=== PATIENT | female | born 1940 | race Caucasian/White ===

== ENCOUNTER 2016-03-22 11:59 | Outpatient (CLI) | payer MEDICARE ==
[2016-03-22 12:57] LABS: Bilirubin Negative (Negative); Blood, Urine Small (Negative); Glucose, Urine (Dipstick) Negative (Negative); Leukocyte Large (Negative); Nitrite Negative (Negative); Protein, Urine (Dipstick) Negative (Neg-Trace); Specific Gravity, Urine 1.015 (1.005-1.030); Urobilinogen 0.2 mg/dL (0.2-1.0); pH, Urine 5.5 (5.0-9.0)
[2016-03-22 12:58] LABS: Clarity Cloudy (Clear)
[2016-03-22 12:59] LABS: Bacteria/HPF 3+ HPF (None Seen); Other Microscopic Description C&S SET UP; Squamous Epithelial 0-3 HPF (0-3)
== END 2016-03-22 12:00 | disposition home or self-care (01) ==
LOC: MADLABBHPM 11:59
PROVIDERS: ATTEND Family Medicine
DX: R30.0 Dysuria (principal)
CPT/HCPCS: 36415; 81001; 87077; 87086; 87186

== ENCOUNTER 2016-05-05 13:57 | Outpatient (CLI) | payer MEDICARE ==
[2016-05-05 14:47] LABS: Bilirubin Negative (Negative); Blood, Urine Negative (Negative); Clarity Clear (Clear); Glucose, Urine (Dipstick) Negative (Negative); Leukocyte Negative (Negative); Nitrite Negative (Negative); Protein, Urine (Dipstick) Negative (Neg-Trace); Specific Gravity, Urine 1.015 (1.005-1.030); Urobilinogen 0.2 mg/dL (0.2-1.0); pH, Urine 6.5 (5.0-9.0)
[2016-05-05 15:10] LABS: Bacteria/HPF Rare-Few HPF (None Seen); RBC/HPF None Seen HPF (0-3); WBC/HPF None Seen HPF (0-3)
== END 2016-05-05 13:58 | disposition home or self-care (01) ==
LOC: MADLABBHPM 13:57
PROVIDERS: ATTEND Family Medicine
DX: R30.0 Dysuria (principal)
CPT/HCPCS: 36415; 81001; 87077; 87086; 87186

== ENCOUNTER 2016-06-01 09:43 | Outpatient (CLI) | payer MEDICARE ==
[2016-06-01 10:13] LABS: Bilirubin Negative (Negative); Blood, Urine Trace (Negative); Clarity Clear (Clear); Glucose, Urine (Dipstick) Negative (Negative); Leukocyte Negative (Negative); Nitrite Negative (Negative); Protein, Urine (Dipstick) Negative (Neg-Trace); Urobilinogen 0.2 mg/dL (0.2-1.0)
[2016-06-01 10:59] LABS: Bacteria/HPF Rare-Few HPF (None Seen); RBC/HPF 0-3 HPF (0-3); WBC/HPF None Seen HPF (0-3)
== END 2016-06-01 09:44 | disposition home or self-care (01) ==
LOC: MADLABBHPM 09:43
PROVIDERS: ATTEND Family Medicine
DX: R30.0 Dysuria (principal)
CPT/HCPCS: 36415; 81001; 87086

== ENCOUNTER 2016-07-27 09:34 | Outpatient (CLI) | payer MEDICARE ==
[2016-07-27 10:05] LABS: Clarity Cloudy (Clear); Leukocyte Large (Negative); Nitrite Negative (Negative); Protein, Urine (Dipstick) 30 mg/dL (Neg-Trace); pH, Urine 5.5 (5.0-9.0)
[2016-07-27 10:06] LABS: Bacteria/HPF 2+ HPF (None Seen); Bilirubin Negative (Negative); Blood, Urine Moderate (Negative); Glucose, Urine (Dipstick) Negative (Negative); Urobilinogen 0.2 mg/dL (0.2-1.0)
== END 2016-07-27 09:35 | disposition home or self-care (01) ==
LOC: MADLABBHPM 09:34
PROVIDERS: ATTEND Family Medicine
DX: R82.90 Unspecified abnormal findings in urine (principal)
CPT/HCPCS: 36415; 81001; 87077; 87086; 87186

== ENCOUNTER 2016-09-22 09:05 | Outpatient (CLI) | payer MEDICARE ==
[2016-09-22 09:53] LABS: ALT (SGPT) 19 U/L (8-55); AST (SGOT) 21 U/L (5-34); Albumin 3.8 g/dL (3.4-4.8); Alkaline Phosphatase 65 U/L (40-150); Anion Gap 15 mmol/L (10-20); BUN (Urea Nitrogen) 17 mg/dL (9.8-20.1); Bilirubin, Total 0.5 mg/dL (0.2-1.2); Calc. Creatinine Clearance 0 mL/min (70-130); Calcium 9.3 mg/dL (7.8-10.44); Carbon Dioxide 22 mmol/L (23-31); Cardiac Risk 4.9 (Less than 4.5); Chloride 106 mmol/L (98-107); Cholesterol 186 mg/dl (< 200 Desired); Estimated GFR-MDRD 72; Globulin 2.7 g/dL (2.4-3.5); Glucose 119 mg/dL (83-110); HDL Cholesterol 38 mg/dL (>60 Neg Risk); Potassium 4.1 mmol/L (3.5-5.1); Protein, Total 6.5 g/dL (6.0-8.3); Sodium 139 mmol/L (136-145); Triglycerides 428 mg/dL (Less than 150)
[2016-09-22 10:15] LABS: #Basophils 0.1 thou/uL (0.0-0.2); #Eosinphils 0.3 thou/uL (0.0-0.7); #Lymphocytes 1.6 thou/uL (1.20-3.40); #Monocytes 0.7 thou/uL (0.11-0.59); #Neutrophils 3.4 thou/uL (1.40-6.50); %Basophils 1.4 % (0.0-1.0); %Eosinophils 4.3 % (0.0-10.0); %Lymphocytes 26.8 % (21.0-51.0); %Monocytes 11.1 % (0.0-10.0); %Neutrophils 56.3 % (42.0-75.0); Hemoglobin 11.9 g/dL (12.0-16.0); Mean Corpuscular HGB CONC 32.3 g/dL (32.0-36.0); Mean Corpuscular Hemoglobin 32.3 pg (27.0-31.0); Mean Platelet Volume 8.4 fL (7.4-10.4); Platelet Count 181 thou/uL (130-400); Red Blood Cell (RBC) Count 3.66 mill/uL (4.20-5.40)
[2016-09-22 10:37] LABS: Thyroid Stimulating Hormone 3.8309 uIU/mL (0.35-4.94); Vitamin D, 25 Hydroxy 25.2 ng/ml (> 30.0)
[2016-09-22 13:55] LABS: Bacteria/HPF Rare-Few HPF (None Seen); Bilirubin Negative (Negative); Blood, Urine Negative (Negative); Clarity Clear (Clear); Glucose, Urine (Dipstick) 100 mg/dL (Negative); Leukocyte Negative (Negative); Nitrite Positive (Negative); Protein, Urine (Dipstick) Negative (Neg-Trace); RBC/HPF 0-3 HPF (0-3); Urobilinogen 0.2 mg/dL (0.2-1.0); WBC/HPF 0-3 HPF (0-3); pH, Urine 5.5 (5.0-9.0)
== END 2016-09-22 09:06 | disposition home or self-care (01) ==
LOC: MADLABBHPM 09:05
PROVIDERS: ATTEND Family Medicine
DX: E78.5 Hyperlipidemia, unspecified (principal); E55.9 Vitamin D deficiency, unspecified; D64.9 Anemia, unspecified; I10 Essential (primary) hypertension; R00.2 Palpitations
CPT/HCPCS: 36415; 80053; 80061; 81001; 82306; 84443; 85025

== ENCOUNTER 2016-11-20 10:32 | Outpatient (CLI) | payer MEDICARE ==
[2016-11-20 10:58] LABS: Hemoglobin A1c 5.2 % (4.0-6.0)
[2016-11-20 11:38] LABS: Anion Gap 12 mmol/L (10-20); BUN (Urea Nitrogen) 17 mg/dL (9.8-20.1); Calc. Creatinine Clearance 0 mL/min (70-130); Calcium 9.6 mg/dL (7.8-10.44); Carbon Dioxide 24 mmol/L (23-31); Chloride 105 mmol/L (98-107); Estimated GFR-MDRD 74; Glucose 111 mg/dL (83-110); Potassium 4.3 mmol/L (3.5-5.1); Sodium 137 mmol/L (136-145)
== END 2016-11-20 10:33 | disposition home or self-care (01) ==
LOC: MADLABBHPM 10:32
PROVIDERS: ATTEND Internal Medicine Cardiovascular Disease
DX: I48.0 Paroxysmal atrial fibrillation (principal); I10 Essential (primary) hypertension; R73.01 Impaired fasting glucose
CPT/HCPCS: 36415; 80048; 83036

== ENCOUNTER 2016-12-14 21:56 | Emergency (ER) | payer MEDICARE ==
[2016-12-14] MEDS ORDERED: Ondansetron ODT 4 MG TAB ONE (22:29)
[2016-12-14] MEDS ORDERED: Acetaminophen/Codeine 30-300mg Tablet ONE (22:29)
--- NOTE | 2016-12-14 23:08 | CT ---
CT BRAIN WITHOUT CONTRAST: 12/14/16 HISTORY: Fall onto the right side, head injury and pain. FINDINGS: The ventricular size is prominent due to cortical atrophy. No evidence of acute infarct, hemorrhage or midline shift or abnormal extra-axial fluid collections are seen. There are changes of mild chron ic small vessel ischemic disease in the periventricular white matter. The bony calvarium is intact. The visualized paranasal sinuses and mastoid air cells are well aerated. IMPRESSION: No CT evidence of acute intracranial process. POS: [facility]
--- NOTE | 2016-12-14 23:10 | CT ---
CERVICAL SPINE CT NONCONTRAST: 12/14/16 INDICATION: Pain, fall with neck injury. The craniocervical junction is intact. There is grade I spondylolisthesis of C4-5. No acute compress ion fracture. Multiple prominence of facet osteoarthritis. There is trace spondylolisthesis of C5-6 and C7-T1. IMPRESSION: 1. No acute fracture of the cervical spine. 2. Multilevel mild listhesis favoring degenerative etiology. POS: [facility]
== END 2016-12-14 23:28 | disposition home or self-care (01) ==
LOC: MADERS 21:56
DX: S01.81XA Laceration without foreign body of other part of head, initial encounter (principal); S80.212A Abrasion, left knee, initial encounter; S80.211A Abrasion, right knee, initial encounter; I10 Essential (primary) hypertension; I48.91 Unspecified atrial fibrillation; Z87.891 Personal history of nicotine dependence; W01.190A Fall on same level from slipping, tripping and stumbling with subsequent striking against furniture, initial encounter; Y92.009 Unspecified place in unspecified non-institutional (private) residence as the place of occurrence of the external cause
CPT/HCPCS: 12013; 70450; 72125; Q0162

== ENCOUNTER 2017-03-15 14:59 | Outpatient (CLI) | payer MEDICARE ==
[2017-03-15 15:44] LABS: Bilirubin Negative (Negative); Blood, Urine Small (Negative); Glucose, Urine (Dipstick) Negative (Negative); Leukocyte Large (Negative); Nitrite Negative (Negative); Protein, Urine (Dipstick) Negative (Neg-Trace); Specific Gravity, Urine 1.015 (1.005-1.030); Urobilinogen 0.2 mg/dL (0.2-1.0)
[2017-03-15 16:00] LABS: Clarity Cloudy (Clear)
[2017-03-15 16:01] LABS: Bacteria/HPF 1+ HPF (None Seen); Squamous Epithelial 0-3 HPF (0-3)
== END 2017-03-15 15:00 | disposition home or self-care (01) ==
LOC: MADLABBHPM 14:59
PROVIDERS: ATTEND Urology
DX: R30.0 Dysuria (principal)
CPT/HCPCS: 81001; 87077; 87086; 87186

== ENCOUNTER 2017-06-28 13:29 | Outpatient (CLI) | payer MEDICARE ==
--- NOTE | 2017-06-28 14:12 | RAD ---
RIGHT HAND 2 VIEWS: HISTORY: A 7-year-old female with a history of arthritis. FINDINGS: Arthrosis and degenerative changes are noted involving the hand and wrist including the trapezium 1st metacarpal joint. No acute fracture or dislocation. No evidence for significant acute inflammatory arthritis. IMPRESSION: Degenerative and osteoarthrosis changes right hand. POS: [facility]
--- NOTE | 2017-06-28 14:13 | RAD ---
LEFT HAND 2 VIEWS: HISTORY: Hand pain. Joint pain. FINDINGS: Osteophytosis, joint space narrowing, and subchondral sclerosis are most pronounced at the 1st carpom etacarpal joint and, to a lesser extent, at the distal interphalangeal joint. No acute fracture, dis location, or aggressive osseous erosions. IMPRESSION: Mild osteoarthritis left hand. POS: [facility]
--- NOTE | 2017-06-28 14:14 | RAD ---
RIGHT WRIST 2 VIEWS: HISTORY: A 77-year-old female with a history of arthritis. FINDINGS/IMPRESSION: Arthrosis and degenerative changes of the wrist including the triscaphe region as well as the trapezi us 1st metacarpal joint without acute fracture or dislocation. POS: [facility]
--- NOTE | 2017-06-28 14:15 | RAD ---
LEFT WRIST 2 VIEWS: HISTORY: A 77-year-old female with a history of arthritis. FINDINGS/IMPRESSION: Arthrosis and degenerative changes including the triscaphe region and trapezium 1st metacarpal joints without fracture or dislocation or other acute process. POS: [facility]
== END 2017-06-28 13:30 | disposition home or self-care (01) ==
LOC: MADRAD 13:29
PROVIDERS: ATTEND Internal Medicine Rheumatology
DX: M79.641 Pain in right hand (principal); M79.642 Pain in left hand; M19.032 Primary osteoarthritis, left wrist; M19.031 Primary osteoarthritis, right wrist; M19.041 Primary osteoarthritis, right hand; M19.042 Primary osteoarthritis, left hand

== ENCOUNTER 2018-05-01 15:12 | Emergency (ER) | payer MEDICARE ==
[~2018-05-01 15:12] MED LIST: Sodium Chloride 0.9% 500 ML BAG ONE
[2018-05-01 16:19] LABS: #Basophils 0.1 thou/uL (0.0-0.2); #Eosinphils 0.3 thou/uL (0.0-0.7); #Lymphocytes 1.3 thou/uL (1.20-3.40); #Monocytes 0.5 thou/uL (0.11-0.59); %Basophils 1.4 % (0.0-1.0); %Eosinophils 4.7 % (0.0-10.0); %Lymphocytes 21.1 % (21.0-51.0); %Monocytes 7.7 % (0.0-10.0); %Neutrophils 65.1 % (42.0-75.0); Mean Corpuscular HGB CONC 33.6 g/dL (32.0-36.0); Mean Corpuscular Hemoglobin 31.6 pg (27.0-31.0); Mean Corpuscular Volume 94.1 fL (78.0-98.0); Mean Platelet Volume 5.7 fL (7.4-10.4); Platelet Count 483 thou/uL (130-400); RBC Distribution Width 14.3 % (11.5-14.5); Red Blood Cell (RBC) Count 3.17 mill/uL (4.20-5.40); White Blood Cell (WBC) Count 6.2 thou/uL (4.8-10.8)
[2018-05-01 16:24] LABS: INR-International Normal Ratio 1.1; PTT 28.1 SEC (22.9-36.1); Prothrombin Time 14.7 SEC (12.0-14.7)
[2018-05-01 16:35] LABS: ALT (SGPT) 38 U/L (8-55); AST (SGOT) 28 U/L (5-34); Albumin 3.8 g/dL (3.4-4.8); Alkaline Phosphatase 115 U/L (40-150); Anion Gap 17 mmol/L (10-20); BUN (Urea Nitrogen) 23 mg/dL (9.8-20.1); Bilirubin, Total 0.2 mg/dL (0.2-1.2); Calc. Creatinine Clearance 0 mL/min (70-130); Calcium 9.8 mg/dL (7.8-10.44); Carbon Dioxide 18 mmol/L (23-31); Chloride 106 mmol/L (98-107); Estimated GFR-MDRD 25; Globulin 2.6 g/dL (2.4-3.5); Glucose 120 mg/dL (83-110); Protein, Total 6.4 g/dL (6.0-8.3); Sodium 136 mmol/L (136-145)
--- NOTE | 2018-05-01 17:11 | RAD ---
AP VIEW CHEST: 05/01/2018 HISTORY: Shortness of breath. Mitral valve surgery. 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 Mild cardiomegaly is seen. Minimal blunting o f the costophrenic angle is seen, compatible with small bilateral pleural effusions. No definite tex dence of pneumothorax is seen. IMPRESSION: Cardiomegaly. POS: [facility]
== END 2018-05-01 20:11 | disposition short-term general hospital (02) ==
LOC: MADERS 15:12
DX: I95.9 Hypotension, unspecified (principal); N17.9 Acute kidney failure, unspecified; E87.70 Fluid overload, unspecified; R00.0 Tachycardia, unspecified; I48.91 Unspecified atrial fibrillation; I10 Essential (primary) hypertension; Z87.891 Personal history of nicotine dependence
CPT/HCPCS: 71045; 80053; 83735; 83880; 84484; 85025; 85610; 85730; 93005; J7050

== ENCOUNTER 2018-05-15 14:23 | Outpatient (CLI) | payer MEDICARE ==
[2018-05-15 14:49] LABS: INR-International Normal Ratio 1.3; Prothrombin Time 16.3 SEC (12.0-14.7)
== END 2018-05-15 14:24 | disposition home or self-care (01) ==
LOC: MADLABBHPM 14:23
PROVIDERS: ATTEND Family Medicine
DX: I48.91 Unspecified atrial fibrillation (principal)
CPT/HCPCS: 36415; 85610

== ENCOUNTER 2019-10-21 21:39 | Emergency (ER) | payer MEDICARE ==
--- NOTE | 2019-10-21 22:19 | CT ---
EXAM: CT brain without contrast HISTORY: Fall with head trauma. Patient is on blood thinners COMPARISON: 12/14/2016 TECHNIQUE: Multiple contiguous axial images were obtained and a CT of the brain without contrast. Sag ittal and coronal reformats were performed. FINDINGS: There are scattered hypodensities in the subcortical and periventricular white matter consi stent with small vessel ischemic disease. There is no evidence of hydrocephalus, intracranial hemorrhage, or extra-axial fluid collection. The calvarium and overlying soft tissues are unremarkable. The visualized paranasal sinuses and masto id air cells are well aerated. IMPRESSION: No evidence of acute intracranial abnormality
== END 2019-10-21 23:25 | disposition home or self-care (01) ==
LOC: MADERS 21:39
DX: S01.01XA Laceration without foreign body of scalp, initial encounter (principal); I48.91 Unspecified atrial fibrillation; I10 Essential (primary) hypertension; F32.9 Major depressive disorder, single episode, unspecified; Z87.891 Personal history of nicotine dependence; Z79.01 Long term (current) use of anticoagulants; W22.8XXA Striking against or struck by other objects, initial encounter
CPT/HCPCS: 12001; 70450

== ENCOUNTER 2020-01-14 21:26 | Emergency (ER) | payer MEDICARE ==
[2020-01-14] MEDS ORDERED: TETANUS AND DIPHTHERIA TOX/PF 0.5 ML DISP.SYRIN ONE (22:19)
--- NOTE | 2020-01-14 22:27 | RAD ---
RADIOGRAPH RIGHTLEG TIBIA-FIBULA 2 VIEWS: DATE: 01/14/2020 HISTORY: Traumatic injury to Right leg. 79-year-old female. FINDINGS: There is no evidence of fracture of tibia or fibula. There is focal soft tissue mass or swelling at t he anterior upper portion of the leg adjacent to the proximal diaphysis of the tibia. IMPRESSION: 1. No fracture. 2. Probable focal small soft tissue hematoma.
--- NOTE | 2020-01-14 22:30 | RAD ---
RADIOGRAPH LEFT HAND 3VIEWS: DATE: 01/14/2020 HISTORY: 79-year-old female with acute traumatic left hand pain from fall FINDINGS: There is no dislocation. No fracture is identified. DJD: Mild at first MCP, severe at third DIP, denisse re at fifth DIP, and moderate at second DIP. Diffuse osteopenia. IMPRESSION: 1. No fracture. 2. Osteoarthrosis.
== END 2020-01-14 23:03 | disposition home or self-care (01) ==
LOC: MADERS 21:26
DX: S63.602A Unspecified sprain of left thumb, initial encounter (principal); S80.11XA Contusion of right lower leg, initial encounter; I48.91 Unspecified atrial fibrillation; I10 Essential (primary) hypertension; F32.9 Major depressive disorder, single episode, unspecified; W16.032A Fall into swimming pool striking wall causing other injury, initial encounter; Y93.11 Activity, swimming; Z87.891 Personal history of nicotine dependence
CPT/HCPCS: 90471; 90714; 94760

== ENCOUNTER 2020-01-31 17:22 | Emergency (ER) | payer MEDICARE ==
[2020-01-31] MEDS ORDERED: Bacitracin 1 PK ONE (17:40)
[2020-01-31] MEDS ORDERED: Cephalexin 500 MG CAP ONE (17:54)
== END 2020-01-31 17:59 | disposition home or self-care (01) ==
LOC: MADERS 17:22
DX: S81.811A Laceration without foreign body, right lower leg, initial encounter (principal); L03.115 Cellulitis of right lower limb; I10 Essential (primary) hypertension; I38 Endocarditis, valve unspecified; I48.91 Unspecified atrial fibrillation; W22.8XXA Striking against or struck by other objects, initial encounter; Z87.891 Personal history of nicotine dependence; Z79.01 Long term (current) use of anticoagulants; Z79.899 Other long term (current) drug therapy
CPT/HCPCS: 99283

== ENCOUNTER 2020-04-03 16:06 | Emergency (ER) | payer MEDICARE ==
--- NOTE | 2020-04-03 17:01 | CT ---
CT BRAIN NONCONTRAST: DATE: 04/03/2020 HISTORY: 80-year-old female status post acute head trauma from fall FINDINGS: There is no evidence of acute intra-axial or extra-axial hemorrhage. There is no midline shift or any other mass effect. There is no extra-axial fluid collection. There is no evidence of obstructive hydrocephalus. Calvarium is intact. There is diffuse brain parenchymal volume loss. There are low att enuation areas in the white matter. These are nonspecific, but in a patient of this age, they are probably chronic ischemic white matter changes due to microvascular atherosclerosis. There is left up per posterior parietal scalp contusion. IMPRESSION: 1) No acute intracranial findings. 2) involutional changes and chronic ischemic white matter changes. 3) acute, traumatic, left parietal scalp contusion
--- NOTE | 2020-04-03 17:08 | CT ---
CT CERVICAL SPINE NONCONTRAST: DATE: 04/03/2020 HISTORY: cervical trauma: 80-year-old female status post fall FINDINGS: There is depression of the superior endplate of T2 vertebral body, resulting in approximately 25% los s of height. There is high density of the depressed superior endplate. This could be due to compaction of bone in an acute fracture, or could represent sclerosis indicating subacute or old heal ing fracture. The T2 vertebral was normal on an older CT of 12/14/2016.. There are no jumped or perched facets. There is no evidence of acute fracture of cervical spine. The cervical vertebral body heights are maintained. There is no prevertebral soft tissue swelling. There are high-grade multilevel bilateral facet osteoarthrosis. No high-grade degenerative disc disease. Grade 1 anterolis thesis of C4 on C5, and to a lesser degree C3 on C4, and C5 on C6, due to the bilateral severe facet DJD. IMPRESSION: 1) Cervical spondylosis consisting of multilevel high-grade facet osteoarthrosis.. 2) no evidence of acute fracture or acute traumatic subluxation of cervical spine. 3) compression fracture of T2 of indeterminate age.
== END 2020-04-03 17:38 | disposition home or self-care (01) ==
LOC: MADERS 16:06
DX: S00.93XA Contusion of unspecified part of head, initial encounter (principal); M79.10 Myalgia, unspecified site; I48.91 Unspecified atrial fibrillation; Z79.01 Long term (current) use of anticoagulants; Z79.899 Other long term (current) drug therapy; W01.10XA Fall on same level from slipping, tripping and stumbling with subsequent striking against unspecified object, initial encounter
CPT/HCPCS: 70450; 72125

== ENCOUNTER 2020-06-18 22:08 | Emergency (ER) | payer MEDICARE ==
[2020-06-18] MEDS ORDERED: Ondansetron PF 4 MG/2 ML Vial ONE (22:19)
[2020-06-18] MEDS ORDERED: Fentanyl 100 MCG/2 ML VIAL ONE (22:19)
[2020-06-18] MEDS ORDERED: Bacitracin 1 PK ONE (23:05)
== END 2020-06-18 23:36 | disposition home or self-care (01) ==
LOC: MADERS 22:08
DX: S42.032A Displaced fracture of lateral end of left clavicle, initial encounter for closed fracture (principal); S50.312A Abrasion of left elbow, initial encounter; I48.91 Unspecified atrial fibrillation; I34.1 Nonrheumatic mitral (valve) prolapse; I10 Essential (primary) hypertension; Z87.891 Personal history of nicotine dependence; Z79.01 Long term (current) use of anticoagulants; Z79.899 Other long term (current) drug therapy; W18.30XA Fall on same level, unspecified, initial encounter
CPT/HCPCS: 96374; 96375; J2405; J3010

== ENCOUNTER 2020-06-22 15:29 | Outpatient (CLI) | payer MEDICARE ==
[2020-06-22 15:55] LABS: #Basophils 0.1 thou/uL (0.0-0.2); #Eosinphils 0.1 thou/uL (0.0-0.7); #Lymphocytes 1.6 thou/uL (1.20-3.40); #Monocytes 0.9 thou/uL (0.11-0.59); #Neutrophils 5.9 thou/uL (1.40-6.50); %Basophils 1.2 % (0.0-1.0); %Eosinophils 1.7 % (0.0-10.0); %Lymphocytes 18.8 % (21.0-51.0); %Monocytes 10.4 % (0.0-10.0); %Neutrophils 67.8 % (42.0-75.0); Hemoglobin 13.4 g/dL (12.0-16.0); Mean Corpuscular HGB CONC 31.9 g/dL (32.0-36.0); Mean Corpuscular Hemoglobin 33.1 pg (27.0-31.0); Mean Corpuscular Volume 103.8 fL (78.0-98.0); Mean Platelet Volume 8.3 fL (7.4-10.4); Platelet Count 271 thou/uL (130-400); RBC Distribution Width 13.9 % (11.5-14.5); Red Blood Cell (RBC) Count 4.05 mill/uL (4.20-5.40); White Blood Cell (WBC) Count 8.7 thou/uL (4.8-10.8)
[2020-06-22 16:07] LABS: Anion Gap 16 mmol/L (10-20); BUN (Urea Nitrogen) 15 mg/dL (9.8-20.1); Calc. Creatinine Clearance 0 mL/min (70-130); Carbon Dioxide 25 mmol/L (23-31); Chloride 104 mmol/L (98-107); Glucose 120 mg/dL (83-110); Potassium 4.8 mmol/L (3.5-5.1); Sodium 140 mmol/L (136-145)
== END 2020-06-22 15:30 | disposition home or self-care (01) ==
LOC: MADRAD 15:29
PROVIDERS: ATTEND Family Medicine
DX: M54.6 Pain in thoracic spine (principal); T14.8XXA Other injury of unspecified body region, initial encounter; I48.91 Unspecified atrial fibrillation; M47.816 Spondylosis without myelopathy or radiculopathy, lumbar region
CPT/HCPCS: 36415; 72070; 72100; 80048; 85025

== ENCOUNTER 2020-06-30 12:20 | Outpatient (CLI) | payer MEDICARE ==
[2020-06-30 12:35] LABS: #Basophils 0.1 thou/uL (0.0-0.2); #Eosinphils 0.2 thou/uL (0.0-0.7); #Lymphocytes 1.8 thou/uL (1.20-3.40); #Monocytes 0.6 thou/uL (0.11-0.59); #Neutrophils 3.5 thou/uL (1.40-6.50); %Basophils 1.6 % (0.0-1.0); %Eosinophils 2.9 % (0.0-10.0); %Lymphocytes 28.9 % (21.0-51.0); %Monocytes 9.7 % (0.0-10.0); %Neutrophils 56.9 % (42.0-75.0); Hemoglobin 12.9 g/dL (12.0-16.0); Mean Corpuscular HGB CONC 30.5 g/dL (32.0-36.0); Mean Corpuscular Volume 104.8 fL (78.0-98.0); Mean Platelet Volume 8.4 fL (7.4-10.4); Platelet Count 340 thou/uL (130-400); RBC Distribution Width 13.4 % (11.5-14.5); Red Blood Cell (RBC) Count 4.04 mill/uL (4.20-5.40); White Blood Cell (WBC) Count 6.2 thou/uL (4.8-10.8)
[2020-06-30 12:46] LABS: ALT (SGPT) 30 U/L (8-55); AST (SGOT) 26 U/L (5-34); Albumin 4.4 g/dL (3.4-4.8); Alkaline Phosphatase 125 U/L (40-110); Anion Gap 18 mmol/L (10-20); BUN (Urea Nitrogen) 14 mg/dL (9.8-20.1); Bilirubin, Total 0.5 mg/dL (0.2-1.2); CRP (Inflammatory) 1.46 mg/dL (= or < 0.5); Calc. Creatinine Clearance 0 mL/min (70-130); Calcium 9.4 mg/dL (7.8-10.44); Carbon Dioxide 24 mmol/L (23-31); Chloride 104 mmol/L (98-107); Globulin 2.1 g/dL (2.4-3.5); Glucose 115 mg/dL (83-110); Potassium 4.4 mmol/L (3.5-5.1); Protein, Total 6.5 g/dL (5.8-8.1); Sodium 142 mmol/L (136-145)
== END 2020-06-30 12:21 | disposition home or self-care (01) ==
LOC: MADLAB 12:20
PROVIDERS: ATTEND Internal Medicine Rheumatology
DX: M80.012 Age-related osteoporosis with current pathological fracture, left shoulder (principal); M54.5 Low back pain; I10 Essential (primary) hypertension
CPT/HCPCS: 80053; 85025; 85652; 86140

== ENCOUNTER 2020-08-10 18:30 | Emergency (ER) | payer MEDICARE | END 2020-08-10 19:09 | disposition home or self-care (01) | LOC: MADERS 18:30 | DX: S91.302A Unspecified open wound, left foot, initial encounter (principal); I48.91 Unspecified atrial fibrillation; I34.1 Nonrheumatic mitral (valve) prolapse; I10 Essential (primary) hypertension; Z87.891 Personal history of nicotine dependence; Z79.01 Long term (current) use of anticoagulants | CPT/HCPCS: 99283 ==

== ENCOUNTER 2020-08-30 15:14 | Emergency (ER) | payer MEDICARE ==
[2020-08-30] MEDS ORDERED: Ciprofloxacin 500 MG TAB ONE (16:47)
== END 2020-08-30 17:00 | disposition home or self-care (01) ==
LOC: MADERS 15:14
DX: L03.116 Cellulitis of left lower limb (principal); I48.91 Unspecified atrial fibrillation; I10 Essential (primary) hypertension; I05.9 Rheumatic mitral valve disease, unspecified; Z87.891 Personal history of nicotine dependence; Z79.899 Other long term (current) drug therapy; Z79.01 Long term (current) use of anticoagulants
CPT/HCPCS: 87070; 87205

== ENCOUNTER 2020-10-07 08:37 | Outpatient (CLI) | payer MEDICARE ==
[2020-10-07 09:36] LABS: #Basophils 0.1 thou/uL (0.0-0.2); #Eosinphils 0.2 thou/uL (0.0-0.7); #Lymphocytes 2.2 thou/uL (1.20-3.40); #Monocytes 0.7 thou/uL (0.11-0.59); #Neutrophils 2.7 thou/uL (1.40-6.50); %Basophils 1.9 % (0.0-1.0); %Eosinophils 3.5 % (0.0-10.0); %Lymphocytes 37.5 % (21.0-51.0); %Monocytes 11.1 % (0.0-10.0); Hemoglobin 12.6 g/dL (12.0-16.0); Mean Corpuscular HGB CONC 30.7 g/dL (32.0-36.0); Mean Corpuscular Hemoglobin 31.9 pg (27.0-31.0); Mean Corpuscular Volume 103.7 fL (78.0-98.0); Mean Platelet Volume 7.4 fL (7.4-10.4); Platelet Count 303 thou/uL (130-400); RBC Distribution Width 13.6 % (11.5-14.5); Red Blood Cell (RBC) Count 3.95 mill/uL (4.20-5.40); White Blood Cell (WBC) Count 5.9 thou/uL (4.8-10.8)
[2020-10-07 09:57] LABS: ALT (SGPT) 13 U/L (8-55); AST (SGOT) 18 U/L (5-34); Albumin 3.9 g/dL (3.4-4.8); Alkaline Phosphatase 77 U/L (40-110); Anion Gap 13 mmol/L (10-20); BUN (Urea Nitrogen) 14 mg/dL (9.8-20.1); Bilirubin, Total 0.4 mg/dL (0.2-1.2); CRP (Inflammatory) 1.35 mg/dL (= or < 0.5); Calc. Creatinine Clearance 0 mL/min (70-130); Calcium 9.6 mg/dL (7.8-10.44); Carbon Dioxide 26 mmol/L (23-31); Chloride 106 mmol/L (98-107); Globulin 2.3 g/dL (2.4-3.5); Glucose 104 mg/dL (83-110); Potassium 4.5 mmol/L (3.5-5.1); Protein, Total 6.2 g/dL (5.8-8.1); Sodium 140 mmol/L (136-145)
== END 2020-10-07 08:38 | disposition home or self-care (01) ==
LOC: MADLAB 08:37
PROVIDERS: ATTEND Internal Medicine Rheumatology
DX: M05.79 Rheumatoid arthritis with rheumatoid factor of multiple sites without organ or systems involvement (principal)
CPT/HCPCS: 36415; 80053; 85025; 85652; 86140

== ENCOUNTER 2020-11-30 16:12 | Outpatient (CLI) | payer MEDICARE ==
[2020-11-30 17:21] LABS: ALT (SGPT) 22 U/L (8-55); AST (SGOT) 22 U/L (5-34); Albumin 4.4 g/dL (3.4-4.8); Alkaline Phosphatase 62 U/L (40-110); Anion Gap 14 mmol/L (10-20); BUN (Urea Nitrogen) 16 mg/dL (9.8-20.1); Bilirubin, Total 0.3 mg/dL (0.2-1.2); Calc. Creatinine Clearance 0 mL/min (70-130); Calcium 10.2 mg/dL (7.8-10.44); Carbon Dioxide 23 mmol/L (23-31); Chloride 108 mmol/L (98-107); Glucose 89 mg/dL (83-110); Potassium 4.4 mmol/L (3.5-5.1); Protein, Total 6.4 g/dL (5.8-8.1); Sodium 141 mmol/L (136-145)
== END 2020-11-30 16:13 | disposition home or self-care (01) ==
LOC: MADLAB 16:12
PROVIDERS: ATTEND Internal Medicine Rheumatology
DX: M70.61 Trochanteric bursitis, right hip (principal); M81.0 Age-related osteoporosis without current pathological fracture
CPT/HCPCS: 36415; 80053; 82306; 83970

== ENCOUNTER 2021-01-04 15:05 | Outpatient (CLI) | payer MEDICARE ==
[2021-01-04 15:52] LABS: #Eosinphils 0.1 thou/uL (0.0-0.7); #Lymphocytes 1.4 thou/uL (1.20-3.40); #Monocytes 0.6 thou/uL (0.11-0.59); #Neutrophils 3.8 thou/uL (1.40-6.50); %Basophils 0.8 % (0.0-1.0); %Eosinophils 2.2 % (0.0-10.0); %Lymphocytes 23.9 % (21.0-51.0); %Monocytes 9.8 % (0.0-10.0); %Neutrophils 63.3 % (42.0-75.0); Hemoglobin 12.4 g/dL (12.0-16.0); Mean Corpuscular Hemoglobin 32.8 pg (27.0-31.0); Mean Corpuscular Volume 102.4 fL (78.0-98.0); Mean Platelet Volume 6.6 fL (7.4-10.4); Platelet Count 215 thou/uL (130-400); RBC Distribution Width 13.7 % (11.5-14.5); Red Blood Cell (RBC) Count 3.78 mill/uL (4.20-5.40); White Blood Cell (WBC) Count 5.9 thou/uL (4.8-10.8)
[2021-01-04 16:33] LABS: ALT (SGPT) 21 U/L (8-55); AST (SGOT) 20 U/L (5-34); Albumin 4.2 g/dL (3.4-4.8); Alkaline Phosphatase 51 U/L (40-110); Anion Gap 14 mmol/L (10-20); BUN (Urea Nitrogen) 25 mg/dL (9.8-20.1); Bilirubin, Total 0.5 mg/dL (0.2-1.2); CRP (Inflammatory) Less than 0.50 mg/dL (= or < 0.5); Calc. Creatinine Clearance 0 mL/min (70-130); Calcium 9.5 mg/dL (7.8-10.44); Carbon Dioxide 24 mmol/L (23-31); Chloride 103 mmol/L (98-107); Globulin 1.8 g/dL (2.4-3.5); Glucose 95 mg/dL (83-110); Potassium 4.3 mmol/L (3.5-5.1); Sodium 137 mmol/L (136-145)
== END 2021-01-04 15:06 | disposition home or self-care (01) ==
LOC: MADLAB 15:05
PROVIDERS: ATTEND Internal Medicine Rheumatology
DX: M05.79 Rheumatoid arthritis with rheumatoid factor of multiple sites without organ or systems involvement (principal)
CPT/HCPCS: 36415; 80053; 85025; 85652; 86140

== ENCOUNTER 2021-02-26 14:36 | Emergency (ER) | payer MEDICARE | END 2021-02-26 15:23 | disposition home or self-care (01) | LOC: MADERS 14:36 | DX: L03.116 Cellulitis of left lower limb (principal); S81.812A Laceration without foreign body, left lower leg, initial encounter; T81.49XA Infection following a procedure, other surgical site, initial encounter; L08.9 Local infection of the skin and subcutaneous tissue, unspecified; I10 Essential (primary) hypertension; I48.91 Unspecified atrial fibrillation; Z87.891 Personal history of nicotine dependence; W22.8XXA Striking against or struck by other objects, initial encounter | CPT/HCPCS: 99283 ==

== ENCOUNTER 2021-04-06 10:37 | Emergency (ER) | payer MEDICARE ==
[2021-04-06] MEDS ORDERED: Albuterol Sulfate 2.5 mg/0.5 ml Neb ONE (11:06)
[2021-04-06] MEDS ORDERED: Dexamethasone 10 MG/ML VIAL ONE (11:06)
[2021-04-06 11:31] LABS: #Lymphocytes 0.9 thou/uL (1.20-3.40); #Monocytes 0.5 thou/uL (0.11-0.59); #Neutrophils 8.8 thou/uL (1.40-6.50); %Basophils 0.3 % (0.0-1.0); %Lymphocytes 8.4 % (21.0-51.0); %Monocytes 4.9 % (0.0-10.0); %Neutrophils 86.3 % (42.0-75.0); Hemoglobin 13.9 g/dL (12.0-16.0); Mean Corpuscular HGB CONC 32.5 g/dL (32.0-36.0); Mean Corpuscular Hemoglobin 31.2 pg (27.0-31.0); Mean Corpuscular Volume 95.8 fL (78.0-98.0); Platelet Count 251 thou/uL (130-400); RBC Distribution Width 11.9 % (11.5-14.5); Red Blood Cell (RBC) Count 4.46 mill/uL (4.20-5.40); White Blood Cell (WBC) Count 10.2 thou/uL (4.8-10.8)
[2021-04-06 11:55] LABS: ALT (SGPT) 36 U/L (8-55); AST (SGOT) 39 U/L (5-34); Albumin 3.8 g/dL (3.4-4.8); Alkaline Phosphatase 93 U/L (40-110); Anion Gap 17 mmol/L (10-20); BUN (Urea Nitrogen) 9 mg/dL (9.8-20.1); Bilirubin, Total 0.5 mg/dL (0.2-1.2); Calc. Creatinine Clearance 0 mL/min (70-130); Calcium 9.3 mg/dL (7.8-10.44); Carbon Dioxide 25 mmol/L (23-31); Chloride 99 mmol/L (98-107); Globulin 2.7 g/dL (2.4-3.5); Glucose 90 mg/dL (83-110); Potassium 3.7 mmol/L (3.5-5.1); Protein, Total 6.5 g/dL (5.8-8.1); Sodium 137 mmol/L (136-145)
== END 2021-04-06 18:00 | disposition short-term general hospital (02) ==
LOC: MADERS 10:37
DX: U07.1 COVID-19 (principal); I48.91 Unspecified atrial fibrillation; I10 Essential (primary) hypertension; Z87.891 Personal history of nicotine dependence
CPT/HCPCS: 36415; 71045; 80053; 83605; 83880; 84484; 85025; 85379; 86140; 87040; 93005; 96374; J1100; J7611; J7620

== ENCOUNTER 2021-07-29 15:30 | Outpatient (CLI) | payer MEDICARE ==
[2021-07-30 00:39] LABS: HBCM Index 0.08 S/CO (0-0.79); HBSAg Index 0.25 S/CO (0-0.99); Hep A IgM AB Non-Reactive (NonReactive); Hep A IgM S/CO 0.21 S/CO (0-0.79); Hep B Surf Ag Non-Reactive S/CO (NonReactive); Hep C IgG Ab Non-Reactive (NonReactive); Hep C Index 0.07 S/CO (0-0.79); Hepatitis B Core IgM Abs Non-Reactive (NonReactive)
[2021-07-30 04:36] LABS: Follow-up Chemistry Comp? YES; Follow-up Result - Chemistry REPORT FAXED
== END 2021-07-29 15:31 | disposition home or self-care (01) ==
LOC: MADLAB 15:30
PROVIDERS: ATTEND Internal Medicine Rheumatology
DX: M05.79 Rheumatoid arthritis with rheumatoid factor of multiple sites without organ or systems involvement (principal)
CPT/HCPCS: 36415; 80074

== ENCOUNTER 2021-08-29 02:49 | Emergency (ER) | payer MEDICARE ==
[2021-08-29 03:15] LABS: #Basophils 0.1 thou/uL (0.0-0.2); #Eosinphils 0.1 thou/uL (0.0-0.7); #Lymphocytes 1.9 thou/uL (1.20-3.40); #Monocytes 0.5 thou/uL (0.11-0.59); #Neutrophils 3.6 thou/uL (1.40-6.50); %Basophils 1.3 % (0.0-1.0); %Eosinophils 1.7 % (0.0-10.0); %Lymphocytes 31.6 % (21.0-51.0); %Monocytes 7.5 % (0.0-10.0); %Neutrophils 57.9 % (42.0-75.0); Hemoglobin 14.4 g/dL (12.0-16.0); Mean Corpuscular HGB CONC 31.4 g/dL (32.0-36.0); Mean Corpuscular Hemoglobin 28.9 pg (27.0-31.0); Mean Corpuscular Volume 91.8 fL (78.0-98.0); Mean Platelet Volume 7.8 fL (7.4-10.4); Platelet Count 227 thou/uL (130-400); Red Blood Cell (RBC) Count 4.97 mill/uL (4.20-5.40); White Blood Cell (WBC) Count 6.2 thou/uL (4.8-10.8)
[2021-08-29 03:34] LABS: Acetaminophen Less than 10.0 mcg/mL (10.0-30.0); Alcohol 142 mg/dL (Less than 10); Salicylate Less than 8.0 mg/dL (15.0-30.0)
[2021-08-29 04:20] LABS: ALT (SGPT) 19 U/L (8-55); AST (SGOT) 21 U/L (5-34); Albumin 4.5 g/dL (3.4-4.8); Alkaline Phosphatase 108 U/L (40-110); Anion Gap 18 mmol/L (10-20); BUN (Urea Nitrogen) 12 mg/dL (9.8-20.1); Bilirubin, Total 0.3 mg/dL (0.2-1.2); Calc. Creatinine Clearance 0 mL/min (70-130); Calcium 8.8 mg/dL (7.8-10.44); Carbon Dioxide 18 mmol/L (23-31); Chloride 105 mmol/L (98-107); Estimated GFR 87; Globulin 2.2 g/dL (2.4-3.5); Glucose 93 mg/dL (83-110); Potassium 3.8 mmol/L (3.5-5.1); Protein, Total 6.7 g/dL (5.8-8.1); Sodium 137 mmol/L (136-145)
== END 2021-08-29 06:26 | disposition home or self-care (01) ==
LOC: MADERS 02:49
DX: S02.32XA Fracture of orbital floor, left side, initial encounter for closed fracture (principal); S06.0X0A Concussion without loss of consciousness, initial encounter; F10.129 Alcohol abuse with intoxication, unspecified; I48.91 Unspecified atrial fibrillation; I10 Essential (primary) hypertension; W18.11XA Fall from or off toilet without subsequent striking against object, initial encounter; Y92.002 Bathroom of unspecified non-institutional (private) residence as the place of occurrence of the external cause; Y90.6 Blood alcohol level of 120-199 mg/100 ml; Z87.891 Personal history of nicotine dependence
CPT/HCPCS: 70450; 70486; 72125; 80053; 80307; 84484; 85025; 93005; 94760

== ENCOUNTER 2021-10-25 14:19 | Outpatient (CLI) | payer MEDICARE ==
[2021-10-25 14:30] LABS: #Basophils 0.1 thou/uL (0.0-0.2); #Eosinphils 0.1 thou/uL (0.0-0.7); #Lymphocytes 1.9 thou/uL (1.20-3.40); #Monocytes 0.7 thou/uL (0.11-0.59); #Neutrophils 2.6 thou/uL (1.40-6.50); %Basophils 1.3 % (0.0-1.0); %Lymphocytes 35.5 % (21.0-51.0); %Monocytes 12.7 % (0.0-10.0); %Neutrophils 48.4 % (42.0-75.0); Hemoglobin 11.7 g/dL (12.0-16.0); Mean Corpuscular HGB CONC 31.2 g/dL (32.0-36.0); Mean Corpuscular Hemoglobin 31.9 pg (27.0-31.0); Mean Corpuscular Volume 102.2 fL (78.0-98.0); Mean Platelet Volume 7.9 fL (7.4-10.4); Platelet Count 211 thou/uL (130-400); RBC Distribution Width 15.9 % (11.5-14.5); Red Blood Cell (RBC) Count 3.66 mill/uL (4.20-5.40); White Blood Cell (WBC) Count 5.3 thou/uL (4.8-10.8)
[2021-10-25 14:50] LABS: ALT (SGPT) 13 U/L (8-55); AST (SGOT) 16 U/L (5-34); Albumin 4.3 g/dL (3.4-4.8); Alkaline Phosphatase 74 U/L (40-110); Anion Gap 15 mmol/L (10-20); BUN (Urea Nitrogen) 17 mg/dL (9.8-20.1); Bilirubin, Total 0.6 mg/dL (0.2-1.2); CRP (Inflammatory) Less than 0.50 mg/dL (= or < 0.5); Calc. Creatinine Clearance 0 mL/min (70-130); Calcium 9.2 mg/dL (7.8-10.44); Carbon Dioxide 22 mmol/L (23-31); Chloride 107 mmol/L (98-107); Estimated GFR 87; Globulin 2.1 g/dL (2.4-3.5); Glucose 114 mg/dL (83-110); Potassium 4.7 mmol/L (3.5-5.1); Protein, Total 6.4 g/dL (5.8-8.1); Sodium 139 mmol/L (136-145)
== END 2021-10-25 14:20 | disposition home or self-care (01) ==
LOC: MADLAB 14:19
PROVIDERS: ATTEND Internal Medicine Rheumatology
DX: M05.79 Rheumatoid arthritis with rheumatoid factor of multiple sites without organ or systems involvement (principal)
CPT/HCPCS: 36415; 80053; 85025; 85652; 86140

== ENCOUNTER 2021-10-27 21:27 | Emergency (ER) | payer OTHER, MEDICARE ==
[2021-10-27] MEDS ORDERED: Morphine 2 MG/ML VIAL ONE (22:01)
[2021-10-27 22:07] LABS: #Basophils 0.1 thou/uL (0.0-0.2); #Eosinphils 0.1 thou/uL (0.0-0.7); #Lymphocytes 1.9 thou/uL (1.20-3.40); #Monocytes 0.6 thou/uL (0.11-0.59); #Neutrophils 5.9 thou/uL (1.40-6.50); %Basophils 0.6 % (0.0-1.0); %Eosinophils 1.4 % (0.0-10.0); %Lymphocytes 22.3 % (21.0-51.0); %Monocytes 7.3 % (0.0-10.0); %Neutrophils 68.4 % (42.0-75.0); Hemoglobin 12.6 g/dL (12.0-16.0); Mean Corpuscular HGB CONC 31.7 g/dL (32.0-36.0); Mean Corpuscular Hemoglobin 32.2 pg (27.0-31.0); Mean Corpuscular Volume 101.5 fL (78.0-98.0); Mean Platelet Volume 8.4 fL (7.4-10.4); Platelet Count 200 thou/uL (130-400); RBC Distribution Width 15.3 % (11.5-14.5); White Blood Cell (WBC) Count 8.6 thou/uL (4.8-10.8)
[2021-10-27] MEDS ORDERED: Bacitracin 1 PK ONE (22:30)
[2021-10-27 22:34] LABS: ALT (SGPT) 16 U/L (8-55); AST (SGOT) 19 U/L (5-34); Albumin 4.6 g/dL (3.4-4.8); Alcohol 107 mg/dL (Less than 10); Alkaline Phosphatase 75 U/L (40-110); Anion Gap 20 mmol/L (10-20); BUN (Urea Nitrogen) 16 mg/dL (9.8-20.1); Bilirubin, Total 0.3 mg/dL (0.2-1.2); Calc. Creatinine Clearance 0 mL/min (70-130); Calcium 9.3 mg/dL (7.8-10.44); Carbon Dioxide 16 mmol/L (23-31); Chloride 108 mmol/L (98-107); Estimated GFR 83; Globulin 2.4 g/dL (2.4-3.5); Glucose 90 mg/dL (83-110); Potassium 3.7 mmol/L (3.5-5.1); Sodium 140 mmol/L (136-145)
[2021-10-27] MEDS ORDERED: Lactated Ringer's 1,000 ML ONE (22:51)
[2021-10-27 23:53] LABS: Bilirubin Negative (Negative); Blood, Urine Negative (Negative); Clarity Clear (Clear); Glucose, Urine (Dipstick) Negative (Negative); Ketone, Urine Negative (Negative); Leukocyte Negative (Negative); Nitrite Negative (Negative); Protein, Urine (Dipstick) Negative (Neg-Trace); Urobilinogen 0.2 mg/dL (Less than 2); pH, Urine 5.5 (5.0-9.0)
[2021-10-28] MEDS ORDERED: Morphine 2 MG/ML VIAL ONE (00:19)
== END 2021-10-28 00:36 | disposition short-term general hospital (02) ==
LOC: MADERS 21:27
DX: S32.592A Other specified fracture of left pubis, initial encounter for closed fracture (principal); S51.812A Laceration without foreign body of left forearm, initial encounter; E86.0 Dehydration; F10.129 Alcohol abuse with intoxication, unspecified; R94.31 Abnormal electrocardiogram [ECG] [EKG]; I10 Essential (primary) hypertension; I48.91 Unspecified atrial fibrillation; W01.0XXA Fall on same level from slipping, tripping and stumbling without subsequent striking against object, initial encounter; Y90.5 Blood alcohol level of 100-119 mg/100 ml; Z87.891 Personal history of nicotine dependence; Z79.899 Other long term (current) drug therapy
CPT/HCPCS: 71045; 72170; 80053; 80307; 81003; 85025; 93005; 96361; 96374; 96376; G0390; J2270; J7120

== ENCOUNTER 2022-04-18 10:51 | Emergency (ER) | payer MEDICARE ==
[2022-04-18] MEDS ORDERED: Acetaminophen 500 MG TAB ONE (11:27)
[2022-04-18 12:45] LABS: #Lymphocytes 0.3 thou/uL (1.20-3.40); #Monocytes 0.4 thou/uL (0.11-0.59); #Neutrophils 5.7 thou/uL (1.40-6.50); %Basophils 0.6 % (0.0-1.0); %Eosinophils 0.7 % (0.0-10.0); %Lymphocytes 4.8 % (21.0-51.0); %Monocytes 6.4 % (0.0-10.0); %Neutrophils 87.5 % (42.0-75.0); Hemoglobin 11.3 g/dL (12.0-16.0); Mean Corpuscular HGB CONC 34.3 g/dL (32.0-36.0); Mean Corpuscular Hemoglobin 32.7 pg (27.0-31.0); Mean Corpuscular Volume 95.4 fl (78.0-98.0); Mean Platelet Volume 7.5 fL (7.4-10.4); Platelet Count 178 10x3/uL (130-400); RBC Distribution Width 13.3 % (11.5-14.5); Red Blood Cell (RBC) Count 3.44 mill/uL (4.20-5.40); White Blood Cell (WBC) Count 6.5 10x3/uL (4.8-10.8)
[2022-04-18] MEDS ORDERED: Sodium Chloride 0.9% 500 ML ONE ×3 (12:48→15:01)
[2022-04-18 13:11] LABS: ALT (SGPT) 169 U/L (8-55); AST (SGOT) 132 U/L (5-34); Albumin 3.9 g/dL (3.4-4.8); Alkaline Phosphatase 192 U/L (40-110); Anion Gap 14 mmol/L (10-20); BUN (Urea Nitrogen) 19 mg/dL (9.8-20.1); Bilirubin, Total 2.7 mg/dL (0.2-1.2); Calc. Creatinine Clearance 0 mL/min (70-130); Calcium 9.5 mg/dL (7.8-10.44); Carbon Dioxide 20 mmol/L (23-31); Chloride 101 mmol/L (98-107); Estimated GFR 72; Globulin 2.1 g/dL (2.4-3.5); Glucose 108 mg/dL (83-110); Lipase 45 U/L (8-78); Magnesium 1.7 mg/dL (1.6-2.6); Potassium 3.2 mmol/L (3.5-5.1); Sodium 132 mmol/L (136-145)
[2022-04-18 13:28] LABS: CKMB 1.3 ng/mL (0-6.6)
[2022-04-18 13:36] LABS: SARS-CoV-2 NAA Rapid Test Not Detected (NotDetected)
[2022-04-18 13:49] LABS: Bilirubin Moderate (Negative); Blood, Urine Trace (Negative); Clarity Clear (Clear); Glucose, Urine (Dipstick) Negative (Negative); Ketone, Urine 80 mg/dL (Negative); Leukocyte Small (Negative); Nitrite Negative (Negative); Protein, Urine (Dipstick) 30 mg/dL (Neg-Trace); Specific Gravity, Urine 1.015 (1.005-1.030)
[2022-04-18 14:00] LABS: Bacteria/HPF 1+ HPF (None Seen)
[2022-04-18] MEDS ORDERED: Sodium Chloride 0.9% 100 ML ONE (14:04)
[2022-04-18] MEDS ORDERED: cefTRIAXone\\ROCEPHIN 2 GM VIAL ONE (14:04)
[2022-04-18] MEDS ORDERED: Aspirin 325 MG TAB ONE (14:10)
[2022-04-18 15:16] LABS: Troponin I Less than 0.010 ng/mL (< 0.028)
== END 2022-04-18 15:22 | disposition short-term general hospital (02) ==
LOC: MADERS 10:51
DX: A41.9 Sepsis, unspecified organism (principal); R77.8 Other specified abnormalities of plasma proteins; R74.01 Elevation of levels of liver transaminase levels; Z20.822 Contact with and (suspected) exposure to COVID-19; I10 Essential (primary) hypertension; Z79.899 Other long term (current) drug therapy; Z79.82 Long term (current) use of aspirin; Z87.891 Personal history of nicotine dependence
CPT/HCPCS: 71045; 80053; 81003; 81015; 82553; 83605; 83690; 83735; 83880; 84484; 85025; 87040; 87086; 87804; 93005; 96365; J0696; J3490; J7030; U0002

== ENCOUNTER 2022-04-24 13:50 | Emergency (ER) | payer MEDICARE ==
[2022-04-24 14:58] LABS: ALT (SGPT) 53 U/L (8-55); AST (SGOT) 21 U/L (5-34); Albumin 3.9 g/dL (3.4-4.8); Alkaline Phosphatase 166 U/L (40-110); Anion Gap 15 mmol/L (10-20); BUN (Urea Nitrogen) 9 mg/dL (9.8-20.1); Bilirubin, Total 1.1 mg/dL (0.2-1.2); Calc. Creatinine Clearance 0 mL/min (70-130); Calcium 10.1 mg/dL (7.8-10.44); Carbon Dioxide 23 mmol/L (23-31); Chloride 101 mmol/L (98-107); Estimated GFR 88; Globulin 2.6 g/dL (2.4-3.5); Glucose 95 mg/dL (83-110); Magnesium 1.7 mg/dL (1.6-2.6); Potassium 3.2 mmol/L (3.5-5.1); Protein, Total 6.5 g/dL (5.8-8.1); Sodium 136 mmol/L (136-145)
[2022-04-24 15:06] LABS: Base Excess-Venous -1.9 mmol/L (-2.0 to 3.0); Bicarbonate (HCO3v) 24.6 mmol/L (22.0-28.0); CO2 Tension (PvCO2) 47.8 mmHg (42.0-51.0); Calcium, Ionized 1.26 mmol/L (1.15-1.33); Chloride 101 mmol/L (98-107); Sodium 135 mmol/L (138-145); T. Carbon Dioxide 26.1 mmol/L (22.0-28.0); vO2 Saturation-calc 97.5 % (60.0-85.0)
[2022-04-24 15:11] LABS: Band 1 % (5-11); Eosinophils 2 % (0-10); Hemoglobin 11.2 g/dL (12.0-16.0); Lymphocytes 3 % (21-51); MDiff Complete? YES; Mean Corpuscular HGB CONC 34.5 g/dL (32.0-36.0); Mean Corpuscular Hemoglobin 32.5 pg (27.0-31.0); Mean Platelet Volume 7.1 fL (7.4-10.4); Monocytes 9 % (0-10); Neutrophil 82 % (42-75); Platelet Count 322 10x3/uL (130-400); Platelet Morphology Comment Appears Adequate; RBC Distribution Width 12.7 % (11.5-14.5); Reactive Lymphocytes 3 % (0-10); Red Blood Cell (RBC) Count 3.46 mill/uL (4.20-5.40); White Blood Cell (WBC) Count 9.2 10x3/uL (4.8-10.8)
[2022-04-24] MEDS ORDERED: Potassium Chloride 20 MEQ TAB ONE (15:26)
[2022-04-24 15:31] LABS: Bilirubin Negative (Negative); Blood, Urine Negative (Negative); Clarity Clear (Clear); Glucose, Urine (Dipstick) Negative (Negative); Ketone, Urine 15 mg/dL (Negative); Leukocyte Trace (Negative); Nitrite Negative (Negative); Protein, Urine (Dipstick) Negative (Neg-Trace); Urobilinogen 0.2 mg/dL (Less than 2)
[2022-04-24 15:46] LABS: Specific Gravity, Urine 1.006 (1.002-1.036)
[2022-04-24 15:48] LABS: Bacteria/HPF Rare-Few HPF (None Seen); RBC/HPF 0-3 HPF (0-3); Squamous Epithelial 0-3 HPF (0-3); Yeast-Budding Rare HPF (None Seen)
[2022-04-24] MEDS ORDERED: Sodium Chloride 0.9% 500 ML ONE (16:00)
[2022-04-24] MEDS ORDERED: Fluconazole 100 MG TAB ONE (17:19)
[2022-04-24 17:37] LABS: Troponin I Less than 0.010 ng/mL (< 0.028)
== END 2022-04-24 18:00 | disposition home or self-care (01) ==
LOC: MADERS 13:50
DX: E86.0 Dehydration (principal); E87.6 Hypokalemia; B37.31 Acute candidiasis of vulva and vagina; I10 Essential (primary) hypertension; Z87.891 Personal history of nicotine dependence; Z79.899 Other long term (current) drug therapy; Z79.82 Long term (current) use of aspirin
CPT/HCPCS: 36415; 71045; 80053; 81003; 81015; 82330; 82803; 83605; 83735; 83880; 84484; 85014; 85025; 87040; 87086; 93005; J7030

== ENCOUNTER 2024-01-01 16:37 | Emergency (ER) | payer MEDICARE ==
[2024-01-01] MEDS ORDERED: Boostrix 0.5 ML (Tdap) VIAL (>/=7 yrs of age) ONE (16:57)
== END 2024-01-01 17:13 | disposition home or self-care (01) ==
LOC: MADERS 16:37
DX: S51.812A Laceration without foreign body of left forearm, initial encounter (principal); I10 Essential (primary) hypertension; W26.8XXA Contact with other sharp object(s), not elsewhere classified, initial encounter; Z23 Encounter for immunization; Z87.891 Personal history of nicotine dependence
CPT/HCPCS: 12002; 90471; 90715

== ENCOUNTER 2024-10-15 12:19 | Emergency (ER) | payer MEDICARE ==
[2024-10-15 13:33] LABS: Hematocrit 32.7 % (36.0-47.0); Hemoglobin 11.1 g/dL (12.0-16.0); Mean Corpuscular Hemoglobin 32.3 pg (27.0-31.0); Mean Corpuscular Volume 94.7 fl (78.0-98.0); Platelet Count 289 10x3/uL (130-400); Red Blood Cell (RBC) Count 3.45 mill/uL (4.20-5.40); White Blood Cell (WBC) Count 8.6 10x3/uL (4.8-10.8)
[2024-10-15 13:35] LABS: Troponin I Less than 0.010 ng/mL (< 0.028)
[2024-10-15 13:49] LABS: MDiff Complete? YES; Manual Diff?? YES; Platelet Adequacy Comment Appears Adequate
[2024-10-15 13:50] LABS: ALT (SGPT) 42 U/L (Less than 34); AST (SGOT) 20 U/L (11-34); Albumin 3.3 g/dL (3.1-4.5); Alkaline Phosphatase 79 U/L (40-110); Anion Gap 16 mmol/L (10-20); BUN (Urea Nitrogen) 12 mg/dL (9.8-20.1); Bilirubin, Total 0.8 mg/dL (0.3-1.2); Calc. Creatinine Clearance 0 mL/min (70-130); Calcium 9.7 mg/dL (7.8-10.44); Carbon Dioxide 20 mmol/L (23-31); Chloride 101 mmol/L (98-107); Globulin 2.5 g/dL (2.4-3.5); Glucose 103 mg/dL (83-110); Potassium 3.5 mmol/L (3.5-5.1); Sodium 133 mmol/L (136-145)
[2024-10-15 13:52] LABS: Glucose, Urine (Dipstick) Negative (Negative); Leukocyte Negative (Negative); Protein, Urine (Dipstick) Negative (Neg-Trace); Specific Gravity, Urine 1.010 (1.005-1.030)
[2024-10-15 13:54] LABS: Bacteria/HPF Rare-Few HPF (None Seen); CAUTI Indications for Culture Dysuria,urgency,freq; RBC/HPF None Seen HPF (0-3); Urine Culture Reflex No No
== END 2024-10-15 15:18 | disposition home or self-care (01) ==
LOC: MADERS 12:19
DX: N39.0 Urinary tract infection, site not specified (principal); R53.1 Weakness; E86.0 Dehydration; I48.91 Unspecified atrial fibrillation; I10 Essential (primary) hypertension; Z87.891 Personal history of nicotine dependence
CPT/HCPCS: 71046; 80053; 80307; 81001; 83605; 84484; 85025; 87086; 87426; 93005; 96360; J7030

== ENCOUNTER 2024-12-23 12:42 | Outpatient (CLI) | payer MEDICARE, OTHER | END 2024-12-23 12:43 | disposition home or self-care (01) | LOC: MADRAD 12:42 | DX: M25.551 Pain in right hip (principal); S32.501A Unspecified fracture of right pubis, initial encounter for closed fracture ==

== ENCOUNTER 2024-12-29 14:39 | Emergency (ER) | payer MEDICARE ==
[2024-12-29 16:31] LABS: Glucose, Urine (Dipstick) Negative (Negative); Leukocyte Large (Negative); Protein, Urine (Dipstick) Negative (Neg-Trace); Specific Gravity, Urine 1.010 (1.005-1.030)
[2024-12-29 16:35] LABS: Bacteria/HPF Rare-Few HPF (None Seen); CAUTI Indications for Culture Dysuria,urgency,freq; RBC/HPF 0-3 HPF (0-3); Urine Culture Reflex Yes Yes; WBC/HPF Greater Than 50 HPF (0-3)
[2024-12-29] MEDS ORDERED: Lidocaine 1% PF 5 ML VIAL ONE (16:56)
[2024-12-29] MEDS ORDERED: cefTRIAXone (ROCEPHIN) 1 GM VIAL ONE (16:56)
== END 2024-12-29 17:07 | disposition home or self-care (01) ==
LOC: MADERS 14:39
DX: N39.0 Urinary tract infection, site not specified (principal); I10 Essential (primary) hypertension; Z87.891 Personal history of nicotine dependence
CPT/HCPCS: 81001; 87086; J0696; 87077; 87186; 96372; 99283

== ENCOUNTER 2025-01-20 16:11 | Emergency (ER) | payer MEDICARE ==
[2025-01-20] MEDS ORDERED: Ciprofloxacin 500 MG TAB ONE (17:14)
[2025-01-20 17:43] LABS: Glucose, Urine (Dipstick) Negative (Negative); Leukocyte Moderate (Negative); Protein, Urine (Dipstick) Negative (Neg-Trace); Specific Gravity, Urine 1.010 (1.005-1.030)
[2025-01-20 17:53] LABS: Bacteria/HPF 1+ HPF (None Seen); CAUTI Indications for Culture Dysuria,urgency,freq; RBC/HPF 0-3 HPF (0-3); Urine Culture Reflex Yes Yes; WBC/HPF Greater Than 50 HPF (0-3)
== END 2025-01-20 18:00 | disposition home or self-care (01) ==
LOC: MADERS 16:11
DX: N39.0 Urinary tract infection, site not specified (principal); I48.91 Unspecified atrial fibrillation; I10 Essential (primary) hypertension; Z87.891 Personal history of nicotine dependence; Z79.82 Long term (current) use of aspirin; Z79.899 Other long term (current) drug therapy
CPT/HCPCS: 81001; 87086; 99283